=== PATIENT | female | born 1970 | race African-American/Black ===

== ENCOUNTER 2017-09-20 10:37 | Emergency (ER) | payer OTHER, BC ==
[~2017-09-20] VITALS: Ht 167.6 cm; Wt 64.4 kg
[~2017-09-20 10:37] MED LIST: CIPROFLOXACIN500 M1 PO; FLAGYL500 MG PO; IBUPROFEN 600600 M1 PO; NOHOMEMEDICATIONS; NORCO 5-325 TA1 EACH PO
== END 2017-09-20 12:25 | disposition home or self-care (01) ==
LOC: ER 10:37
DX: N34.2 Other urethritis (principal)

== ENCOUNTER 2021-09-24 12:33 | Emergency (ER) | payer OTHER ==
[~2021-09-24] VITALS: Ht 167.6 cm; Wt 59.0 kg
[2021-09-24 14:12] LABS: ABSOLUTE NEUTROPHILS 2.5 thou/uL (1.4-8.2); BASOPHILS 0.9 % (0.0-2.0); EOSINOPHILS 9.2 % (0.0-3.0); HEMATOCRIT 30.6 % (37.0-47.0); HEMOGLOBIN 10.1 gm/dL (12.0-15.0); LYMPHOCYTES 19.4 % (24.0-44.0); MCH 31.7 pg (26.0-34.0); MCHC 33.1 g/dL (28.0-37.0); MCV 95.6 fL (80.0-100.0); MONOCYTES 13.2 % (1.0-8.0); PLATELET COUNT 260 thou/uL (150-400); POLYS 57.3 % (36.0-66.0); RDW 13.8 % (10.5-14.5); WBC 4.4 thou/uL (4.0-11.0)
[2021-09-24 14:18] LABS: CALCIUM 8.9 mg/dL (8.5-10.1); CREATININE 9.4 mg/dL (0.6-1.0); POTASSIUM 4.4 mmol/L (3.5-5.1)
[2021-09-24] MEDS ORDERED: PREDNISONE 5 MG5 MG PO (14:40)
[2021-09-24] MEDS ORDERED: AMLODIPINE BESY10 MG PO (14:40)
[2021-09-24] MEDS ORDERED: RENVELA800 MG PO (14:40)
[2021-09-24] MEDS ORDERED: WARFARIN SODIUM6 MG PO (14:40)
[2021-09-24] MEDS ORDERED: CARVEDILOL25 MG PO (14:40)
[2021-09-24] MEDS ORDERED: HYDRALAZINE HC100 MG PO (14:41)
[2021-09-24 15:11] VITALS: BP 164/80
== END 2021-09-24 15:11 | disposition home or self-care (01) ==
LOC: ER 12:33
PROVIDERS: Emergency Medicine
DX: S50.12XA Contusion of left forearm, initial encounter (principal); M79.602 Pain in left arm; Z98.51 Tubal ligation status; Z98.890 Other specified postprocedural states; Z79.899 Other long term (current) drug therapy; Z88.8 Allergy status to other drugs, medicaments and biological substances; X58.XXXA Exposure to other specified factors, initial encounter; Y93.89 Activity, other specified; Y92.89 Other specified places as the place of occurrence of the external cause; Y99.8 Other external cause status